=== PATIENT | female | born 1995 | race Caucasian/White ===

== ENCOUNTER 2017-05-22 13:20 | Emergency (ER) | payer BC ==
[~2017-05-22] VITALS: Ht 165.1 cm; Wt 66.4 kg
[2017-05-22 13:23] VITALS: TEMP 97.8
[2017-05-22] MEDS ORDERED: NORTREL 35 MCG-1 TAB PO (13:27)
[2017-05-22] MEDS ORDERED: ADDERALL20 MG PO (13:27)
[2017-05-22 16:00] LABS: CREATININE, serum 0.82 mg/dL (0.52-1.25); POTASSIUM 4.3 mmol/L (3.4-5.0)
[2017-05-22] MEDS ORDERED: AMOXICILLIN875 MG PO (16:43)
[2017-05-22 17:20] VITALS: BP 120/82; PULSE 90
== END 2017-05-22 17:21 | disposition home or self-care (01) ==
LOC: COL.ER 13:20
PROVIDERS: Physician Assistant
DX: R00.2 Palpitations (principal)
CPT/HCPCS: J7030; Q9967

== ENCOUNTER → 2017-05-23 | Outpatient (CLI) | payer BC ==
[~2017-05-23] MED LIST: ADDERALL20 MG PO; AMOXICILLIN875 MG PO; NORTREL 35 MCG-1 TAB PO
== END ==
LOC: COL.RAD 16:50
DX: R79.1 Abnormal coagulation profile (principal); R00.2 Palpitations